=== PATIENT | female | born 1955 | race African-American/Black ===

== ENCOUNTER 2018-09-30 12:46 | Outpatient (CLI) | payer BC ==
--- NOTE | 2018-09-30 15:20 | BD ---
DEXA BONE DENSITY STUDY: Date: 09/30/18 HISTORY: Postmenopausal. FINDINGS: Lumbar Spine: BMD (g/cm2) L1 1.214 T-Score: +2.0 L2 1.430 T-Score: +3.7 L3 1.426 T-Score: +3.1 L4 1.495 T-Score: +3.9 Total 1.392 T-Score: +3.1 Left Femoral Neck: 1.131 T-Score: +2.5 Total Femur: 1.266 T-Score: +2.7 IMPRESSION: Normal bone mineral density of the lumbar spine and left femoral neck, with elevated T and Z-Scores. This would suggest the possibility of some sclerotic bone disease. Plain film correlation would be he lpful to exclude sclerotic bony metastatic disease. POS: TPC
--- NOTE | 2018-10-01 08:19 | MMO ---
Bilateral MAMMO Bilat Screen [facility]. CLINICAL HISTORY: Patient is 62 years old and is seen for screening. The patient has a history of left Excisional Biopsy in February, - benign. VIEWS: The views performed were: . FILMS COMPARED: The present examination has been compared to prior imaging studies performed at [facility] on 12/18/2004, 01/08/2006, 11/05/2009 and 09/19/2015. MAMMOGRAM FINDINGS: The breasts are almost entirely fat. Benign calcifications are noted bilaterally. There are stable post-operative changes on the left. There are no suspicious masses, suspicious calcifications, or new areas of architectural distortion. IMPRESSION: THERE IS NO MAMMOGRAPHIC EVIDENCE OF MALIGNANCY. A ROUTINE FOLLOW-UP MAMMOGRAM IN 1 YEAR IS RECOMMENDED. THE RESULTS OF THIS EXAM WERE SENT TO THE PATIENT. ACR BI-RADS Category 2 - Benign finding MAMMOGRAPHY NOTE: 1. A negative mammogram report should not delay a biopsy if a dominant of clinically suspicious mass is present. 2. Approximately 10% to 15% of breast cancers are not detected by mammography. 3. Adenosis and dense breasts may obscure an underlying neoplasm.
== END 2018-09-30 12:47 | disposition home or self-care (01) ==
LOC: BICMAMMO 12:46
PROVIDERS: ATTEND Family Medicine
DX: Z12.31 Encounter for screening mammogram for malignant neoplasm of breast (principal); Z13.820 Encounter for screening for osteoporosis; Z91.89 Other specified personal risk factors, not elsewhere classified
CPT/HCPCS: 77063; 77067; 77080

== ENCOUNTER 2020-09-13 14:30 | Outpatient (CLI) | payer BC | END 2020-09-13 14:31 | disposition home or self-care (01) | LOC: CTENTCT 14:30 | PROVIDERS: ATTEND Otolaryngology Plastic Surgery within the Head & Neck | DX: J32.9 Chronic sinusitis, unspecified (principal) | CPT/HCPCS: 70486 ==

== ENCOUNTER 2021-02-11 14:22 | Outpatient (CLI) | payer MEDICARE | END 2021-02-11 14:23 | disposition home or self-care (01) | LOC: BICMAMMO 14:22 | PROVIDERS: ATTEND Family Medicine | DX: Z12.31 Encounter for screening mammogram for malignant neoplasm of breast (principal); Z91.89 Other specified personal risk factors, not elsewhere classified | CPT/HCPCS: 77063; 77067 ==

== ENCOUNTER 2021-11-11 10:16 | Outpatient (CLI) | payer MEDICARE | END 2021-11-11 10:17 | disposition home or self-care (01) | LOC: LABBT 10:16 | PROVIDERS: ATTEND Internal Medicine Gastroenterology | DX: Z20.822 Contact with and (suspected) exposure to COVID-19 (principal) | CPT/HCPCS: 87811 ==

== ENCOUNTER 2021-11-13 06:49 | Day surgery (SDC) | payer MEDICARE ==
[2021-11-11 12:17] VITALS: BMI 45.6
[2021-11-13] MEDS ORDERED: Lidocaine 1% PF 5 ML VIAL ONE (09:32)
[2021-11-13] MEDS ORDERED: PROPOFOL 200 MG/20 ML VIAL ONE (09:32)
== END 2021-11-13 11:18 | disposition home or self-care (01) ==
LOC: SDC 06:49
PROVIDERS: ATTEND Internal Medicine Gastroenterology
PROC: 0DBK8ZX Excision of Ascending Colon, Via Natural or Artificial Opening Endoscopic, Diagnostic (ICD-10-PCS; principal; 2021-11-13)
PROC: 0DBN8ZX Excision of Sigmoid Colon, Via Natural or Artificial Opening Endoscopic, Diagnostic (ICD-10-PCS; 2021-11-13)
DX: Z12.11 Encounter for screening for malignant neoplasm of colon (principal); K63.5 Polyp of colon; K57.30 Diverticulosis of large intestine without perforation or abscess without bleeding; I10 Essential (primary) hypertension; J45.909 Unspecified asthma, uncomplicated; Z79.899 Other long term (current) drug therapy; Z88.0 Allergy status to penicillin
CPT/HCPCS: 88305; J2704

== ENCOUNTER 2022-02-20 13:02 | Outpatient (CLI) | payer MEDICARE | END 2022-02-20 13:03 | disposition home or self-care (01) | LOC: BICMAMMO 13:02 | PROVIDERS: ATTEND Family Medicine | DX: Z12.31 Encounter for screening mammogram for malignant neoplasm of breast (principal); Z91.89 Other specified personal risk factors, not elsewhere classified | CPT/HCPCS: 77063; 77067 ==

== ENCOUNTER 2024-03-21 13:18 | Outpatient (CLI) | payer MEDICARE | END 2024-03-21 13:19 | disposition home or self-care (01) | LOC: BICMAMMO 13:18 | PROVIDERS: ATTEND Family Medicine | DX: Z12.31 Encounter for screening mammogram for malignant neoplasm of breast (principal); Z13.820 Encounter for screening for osteoporosis; Z91.89 Other specified personal risk factors, not elsewhere classified | CPT/HCPCS: 77063; 77067; 77080 ==